=== PATIENT | male | born 1985 | race Caucasian/White ===

== ENCOUNTER 2016-11-29 04:45 | Emergency (ER) | payer OTHER ==
--- NOTE | ~2016-11-29 | CT2 ---
[facility] A Service of [facility] RADIOLOGY TEXT RESULTS PATIENT: MARINA CANNON LOCATION: MICHELLE : 83 UNIT #: [id number] AGE: [address]: Kel Gustafson MD SEX: M ORDER DR: [id number] [facility] [address] [place], [place] [address] [id number] E MR#: [id number] Acc #: [id number] NAME: MARINA CANNON : 1985 SEX: M STUDY DATE/TIME: 11/29/2016 5:15 UNIT: MICHELLE ROOM: STUDY DESCRIPTION: CT Abd and Pelv W Cont Attending Physician: Kel Gustafson M.D. Referring Physician: Perry Self Referred Ordering Physician: Kel Gustafson M.D. Primary Care [facility]: [facility] MED[facility] IMAGING REPORT This report is preliminary unless electronic signature is present EXAM Abdomen and pelvis CT with contrast. DATE OF EXAM 11/29/2016 INDICATIONS Upper abdominal pain 2 days after eating. Nausea and vomiting. TECHNIQUE Contrast-enhanced abdomen and pelvis CT was performed. NOTE: This CT exam was performed with one or more of the following radiation dose reduction techniques: automatic exposure control, adjustment of mA and/or kV according to patient size, and iterative reconstruction. COMPARISON 06/19/[address] ABDOMEN: Included lung bases are clear. No pleural or pericardial effusion. Aorta unremarkable. Spleen, adrenal glands and pancreas are unremarkable. Gallbladder contracted. There is mild fatty infiltration of the liver and hepatomegaly with the left hepatic lobe draped over the anterior margin of the spleen. Kidneys are unremarkable. CT PELVIS: Bladder and prostate unremarkable. Small amount of free fluid in the pelvis. No drainable fluid collection. Trace free fluid in the pericolic gutters bilaterally. The appendix is normal. There is abnormal wall thickening and low grade inflammatory change of the distal small bowel/terminal ileum. There is some subtle induration of the [facility] A Service of [facility] RADIOLOGY TEXT RESULTS PATIENT: DURMISI,MENTOR LOCATION: MICHELLE : 83 UNIT #: [id number] AGE: [address]: Kel Gustafson MD SEX: M ORDER DR: fat planes surrounding these loops of bowel which are nondilated. Imaging features are nonspecific, but suggestive of a distal small bowel enteritis probably infectious or less likely inflammatory. Inflammatory bowel disease such as Crohn disease could present similarly, and this should be correlated clinically. No abscess, free air or bowel obstruction. No inguinal adenopathy or fluid collection. Osseous structures demonstrate no suspicious bone lesion. IMPRESSION 1. Subtle low grade inflammatory change of the distal ileum extending from the level of the terminal ileum into the distal ileum on axial images. There is no associated bowel obstruction, free air or drainable fluid collection. This is probably related to an inflammatory or infectious colitis. See discussion above. 2. Small amount of free fluid in the pericolic gutters extending into the pelvis. 3. The appendix is normal. Dictated by... Gerald Conley M.D. THIS IS AN ELECTRONICALLY VERIFIED REPORT Gerald Conley M.D. at 11/29/2016 10:13 PM Carter TD: 11/29/2016 15:39 JOB #: [id number] MEDICAL IMAGING REPORT Page 1 of 1 COPY
[2016-11-29 04:05] LABS: BASOPHIL% 0.3 % (0-2.5); EOSINOPHIL# 0.2 X10e3 (0-0.7); EOSINOPHIL% 3.9 % (0.0-7.0); HEMATOCRIT 42.1 % (38.0-50.0); HEMOGLOBIN 14.1 gm/dL (13.0-16.0); LYMPHOCYTE# 2.3 X10e3 (1.0-3.5); LYMPHOCYTE% 35.9 % (17.0-45.0); MEAN CORPUSCULAR HEMOGLOBIN 31.5 PG (28-34); MEAN CORPUSCULAR HGB CONC 33.6 g/dL (30-36); MEAN PLATELET VOLUME 7.6 FL (6.5-11.5); MONOCYTE# 0.5 X10e3 (0-1.0); MONOCYTE% 8.2 % (3.0-12.0); NEUTROPHIL# 3.3 X10e3 (1.5-7.1); NEUTROPHIL% 51.7 % (40-75); PLATELET COUNT 156 X10e3 (140-420); RED BLOOD COUNT 4.48 X10e (3.90-5.60); RED CELL DISTRIBUTION WIDTH 13.8 % (11.0-15.5); WHITE BLOOD COUNT 6.4 X10e3 (4.0-10.5)
[2016-11-29 04:09] LABS: DIFF IND NO
[2016-11-29 04:23] LABS: URINE SOURCE CLEAN CATCH
[2016-11-29 04:26] LABS: BILIRUBIN, DIRECT 0.1 mg/dL (0.0-0.2); BILIRUBIN,INDIRECT 0.3 mg/dL (0.0-0.9); BILIRUBIN,TOTAL 0.4 mg/dL (0.2-2.0); CALCIUM SERUM 8.9 mg/dL (8.4-10.2); CREATININE SERUM 0.5 mg/dL (0.6-1.4); GLOM FILT RATE Estimated 142.4 mL/min (>60); POTASSIUM 3.5 mmol/L (3.5-5.1); PROTEIN TOTAL SERUM 6.9 g/dL (6.0-8.3)
[~2016-11-29 04:45] MED LIST: DICLOFENAC PO; FLEXERIL10 MG PO; IBUPROFEN600 MG PO; LORTAB 10-5001 EACH PO; PRILOSEC20 M1 PO; ROBITUSSIN A-C S5 ML PO; ROBITUSSIN15 MG/5 ML PO; TAMIFLU75 M1 PO; VOLTAREN75 MG PO; ZITHROMAX PO; ZITHROMAX1 G/PKT PO; ZOFRAN ODT4 MG PO
[2016-11-29 05:22] LABS: URINE COLOR YELLOW
[2016-11-29 05:23] LABS: URINE APPEARANCE CLOUDY; URINE BILIRUBIN NEG (NEG); URINE BLOOD NEG (NEG); URINE GLUCOSE NEG (NEG); URINE KETONE NEG (NEG); URINE LEUKOCYTE ESTERASE NEG (NEG); URINE NITRATE NEG (NEG); URINE PH 7.5 (5-8); URINE PROTEIN NEG (NEG); URINE SPECIFIC GRAVITY 1.012 (1.003-1.035); URINE UROBILINOGEN 0.2 MG/DL (NEG)
== END 2016-11-29 06:15 | disposition home or self-care (01) ==
LOC: CED 04:45
PROVIDERS: Emergency Medicine
DX: K52.9 Noninfective gastroenteritis and colitis, unspecified (principal)
CPT/HCPCS: 36415; 74177; 80048; 80076; 81003; 82150; 83690; 85025; 96360; 99284; Q9967

== ENCOUNTER 2017-05-04 15:28 | Emergency (ER) | payer OTHER ==
[~2017-05-04] VITALS: Ht 170.2 cm; Wt 63.5 kg
--- NOTE | ~2017-05-04 | CR63 ---
[facility]. [facility] A Service [facility] RADIOLOGY TEXT RESULTS PATIENT: MARINA CANNON LOCATION: SED : 83 UNIT #: [id number] AGE: [address]: Jose Antonio Rodriguez PAC SEX: M ORDER DR: [id number] [place] [id number] E MR#: [id number] Acc #: [id number] NAME: MARINA CANNON : 1985 SEX: M STUDY DATE/TIME: 05/04/2017 16:25 UNIT: SED ROOM: STUDY DESCRIPTION: CR Chest 2 View Attending Physician: Jose Antonio Rodriguez P.A.-C. Ordering Physician: Jose Antonio Rodriguez P.A.-C. [facility] REPORT This report is preliminary unless electronic signature is present. EXAM Two-view chest. HISTORY Fever, body aches, headaches, cough x1 day COMPARISON 02/10/2011 FINDINGS Two views of the chest demonstrates a subtle patchy parenchymal opacity right lung base, could represent early an infiltrate. No dense consolidation or effusions. Heart, mediastinum, great vessels and bony thorax unremarkable. IMPRESSION Subtle parenchymal opacity right lower lung base could represent overlying soft tissue shadow or early infiltrate. Clearly no dense consolidation or sizable effusion. Dictated by... Michael Regan M.D. THIS IS AN ELECTRONICALLY VERIFIED REPORT Michael Regan M.D. at 05/05/2017 2:31 PM KATIE/shruti TD: 05/05/2017 03:08 JOB #: [id number] [facility]. [facility] A Service [facility] RADIOLOGY TEXT RESULTS PATIENT: MARINA CANNON LOCATION: SED : 83 UNIT #: [id number] AGE: [address]: Jose Antonio Rodriguez PAC SEX: M ORDER DR: MEDICAL IMAGING REPORT Page 1 of 1
[2017-05-04 17:00] LABS: INFLUENZA A NEG (NEG); INFLUENZA B NEG (NEG)
== END 2017-05-04 17:18 | disposition home or self-care (01) ==
LOC: SED 15:28
PROVIDERS: Physician Assistant
DX: J18.9 Pneumonia, unspecified organism (principal); R51 Headache; R19.7 Diarrhea, unspecified; R11.10 Vomiting, unspecified; F17.200 Nicotine dependence, unspecified, uncomplicated
CPT/HCPCS: 71020; 87804; 99284

== ENCOUNTER 2017-05-16 13:24 | Emergency (ER) | payer OTHER ==
--- NOTE | ~2017-05-16 | CT57 ---
[facility] A Service of [facility] RADIOLOGY TEXT RESULTS PATIENT: MARINA CANNON LOCATION: SED : 83 UNIT #: [id number] AGE: [address]: Marcelo Farris MD SEX: M ORDER DR: [id number] [address] [address] [id number] E MR#: [id number] Acc #: [id number] NAME: MARINA CANNON : 1985 SEX: M STUDY DATE/TIME: 05/16/2017 14:15 UNIT: SED ROOM: STUDY DESCRIPTION: CT Chest Wo Cont Attending Physician: Marcelo Farris M.D. Ordering Physician: Marcelo Farris M.D. Primary Care Physician: [facility] IMAGING REPORT This report is preliminary unless electronic signature is present. EXAM CT chest without contrast 05/16/2017 HISTORY 32-year-old male left side chest pain for 1 week. Diagnosed with pneumonia last week. Eyes red with drainage. Finished antibiotics today. COMPARISON PA and lateral chest radiograph 05/04/2017. No CT chest at this institution for comparison. TECHNIQUE 5 mm noncontrast axial images through the chest. Sagittal and coronal reformatted images were obtained. This CT exam was performed with one or more of the following radiation dose reduction techniques: automatic exposure control, adjustment of mA and/or kV according to patient size, and iterative reconstruction. FINDINGS No lung consolidations are seen. 4 mm noncalcified nodule is demonstrated within the right upper lobe (series 5, image 30). It does not correspond to the nodular density questioned on previous chest radiograph. No pericardial effusion. No pleural effusion. No pathologic adenopathy. No pneumothorax. Included upper abdominal organs have a normal noncontrast appearance. No acute or suspicious osseous abnormalities are identified. [facility] A Service [facility] RADIOLOGY TEXT RESULTS PATIENT: MARINA CANNON LOCATION: SED : 83 UNIT #: [id number] AGE: [address]: Marcelo Farris MD SEX: M ORDER DR: IMPRESSION 1. 4 mm noncalcified right upper lobe pulmonary nodule. If this is a low risk patient (no history malignancy or smoking history, etc.), no further followup is necessary. If this is a high risk patient, optional CT chest in 12 months would be recommended. This follows the Amy Society criteria for pulmonary nodule management. 2. No acute airspace disease. Remainder of the examination is unremarkable. Dictated by... Natacha Espinal M.D. THIS IS AN ELECTRONICALLY VERIFIED REPORT Natacha Espinal M.D. at 05/17/2017 7:46 PM SUMMER/denise TD: 05/17/2017 09:51 JOB #: [id number] MEDICAL IMAGING REPORT Page 1 of 1
--- NOTE | ~2017-05-16 | EKG ---
PATIENT: MARINA CANNON UNIT #: [id number] Ventricular Rate: 76 BPM Atrial Rate: 76 BPM P-R Interval: 166 ms QRS Duration: 92 ms Q-T Interval: 350 ms QTC Calculation(Bezet): 393 ms P [place]: 43 degrees Calculated R [place]: 66 degrees Calculated T [place]: 38 degrees Diagnosis Line: Normal sinus rhythm Diagnosis Line: Normal ECG Diagnosis Line: When compared with ECG of 19-AUG-2015 14:18, Diagnosis Line: T wave amplitude has decreased in Anterior leads Diagnosis Line: Confirmed by YARELI BLANCAS MD ([id number]) on 05/20/2017 Diagnosis Line: 7:28:25 PM INTERPRETING MD: YONNY LYNN
[2017-05-16] MEDS ORDERED: ULTRAM (13:31)
[2017-05-16 14:39] LABS: URINE SOURCE CLEAN CATCH
[2017-05-16 14:42] LABS: URINE APPEARANCE CLEAR; URINE BILIRUBIN NEG (NEG); URINE BLOOD NEG (NEG); URINE COLOR YELLOW; URINE GLUCOSE NEG (NORM); URINE KETONE NEG (NEG); URINE LEUKOCYTE ESTERASE NEG (NEG); URINE NITRATE NEG (NEG); URINE PROTEIN NEG (NEG); URINE SPECIFIC GRAVITY 1.025 (1.003-1.035); URINE UROBILINOGEN 0.2 MG/DL (NORM)
[2017-05-16 14:50] LABS: MICRO INDICATED? NO
[2017-05-16 14:52] LABS: AMPHETAMINE NEG (NEG); BARBITURATES NEG (NEG); BENZODIAZEPINES NEG (NEG); COCAINE NEG (NEG); MARIJUANA NEG (NEG); OPIATES NEG (NEG); TRICYCLIC ANTIDEPRESSANTS NEG (NEG); U METHADONE NEG (NEG)
== END 2017-05-16 15:03 | disposition home or self-care (01) ==
LOC: SED 13:24
PROVIDERS: Emergency Medicine
DX: J20.9 Acute bronchitis, unspecified (principal); R09.1 Pleurisy
CPT/HCPCS: 71250; 80307; 81003; 93005; 94640; 99285